=== PATIENT | female | born 1960 | race Caucasian/White ===

== ENCOUNTER 2019-02-14 12:31 | Emergency (ER) | payer BC ==
[2019-02-14] MEDS ORDERED: Adacel (T-DAP) 0.5 ML SYRINGE ONE (13:07)
[2019-02-14 13:33] LABS: #Basophils 0.1 thou/uL (0.0-0.2); #Lymphocytes 0.7 thou/uL (1.20-3.40); #Monocytes 0.4 thou/uL (0.11-0.59); #Neutrophils 5.3 thou/uL (1.40-6.50); %Basophils 0.8 % (0.0-1.0); %Lymphocytes 11.3 % (21.0-51.0); %Monocytes 5.7 % (0.0-10.0); %Neutrophils 82.1 % (42.0-75.0); Hemoglobin 12.9 g/dL (12.0-16.0); Mean Corpuscular HGB CONC 34.3 g/dL (32.0-36.0); Mean Corpuscular Hemoglobin 29.8 pg (27.0-31.0); Mean Corpuscular Volume 86.9 fL (78.0-98.0); Mean Platelet Volume 8.4 fL (7.4-10.4); Platelet Count 191 thou/uL (130-400); RBC Distribution Width 12.4 % (11.5-14.5); Red Blood Cell (RBC) Count 4.32 mill/uL (4.20-5.40); White Blood Cell (WBC) Count 6.4 thou/uL (4.8-10.8)
[2019-02-14 13:41] LABS: PTT 24.7 SEC (22.9-36.1); Prothrombin Time 12.9 SEC (12.0-14.7)
[2019-02-14 13:47] LABS: ALT (SGPT) 21 U/L (8-55); AST (SGOT) 22 U/L (5-34); Albumin 4.4 g/dL (3.5-5.0); Alkaline Phosphatase 60 U/L (40-150); Anion Gap 15 mmol/L (10-20); BUN (Urea Nitrogen) 15 mg/dL (9.8-20.1); Bilirubin, Total 1.6 mg/dL (0.2-1.2); CK (CPK) 102 U/L (29-168); Calc. Creatinine Clearance 0 mL/min (70-130); Calcium 9.8 mg/dL (7.8-10.44); Carbon Dioxide 22 mmol/L (22-29); Chloride 107 mmol/L (98-107); Estimated GFR-MDRD 59; Globulin 2.6 g/dL (2.4-3.5); Glucose 97 mg/dL (70-105); Potassium 4.1 mmol/L (3.5-5.1); Sodium 140 mmol/L (136-145)
[2019-02-14 15:38] LABS: Bilirubin Negative (Negative); Blood, Urine Negative (Negative); Clarity Clear (Clear); Glucose, Urine (Dipstick) Negative (Negative); Leukocyte Negative (Negative); Nitrite Negative (Negative); Protein, Urine (Dipstick) Negative (Neg-Trace); Specific Gravity, Urine 1.015 (1.005-1.030); Urobilinogen 0.2 mg/dL (0.2-1.0)
[2019-02-14] MEDS ORDERED: Acetaminophen 500 MG TAB ONE (16:20)
[2019-02-14 17:48] LABS: #Basophils 0.1 thou/uL (0.0-0.2); #Lymphocytes 1.1 thou/uL (1.20-3.40); #Monocytes 0.4 thou/uL (0.11-0.59); #Neutrophils 3.5 thou/uL (1.40-6.50); %Eosinophils 0.3 % (0.0-10.0); %Lymphocytes 20.9 % (21.0-51.0); %Monocytes 7.3 % (0.0-10.0); %Neutrophils 70.5 % (42.0-75.0); Hemoglobin 11.5 g/dL (12.0-16.0); Mean Corpuscular HGB CONC 34.8 g/dL (32.0-36.0); Mean Corpuscular Hemoglobin 29.8 pg (27.0-31.0); Mean Corpuscular Volume 85.7 fL (78.0-98.0); Platelet Count 164 thou/uL (130-400); Red Blood Cell (RBC) Count 3.85 mill/uL (4.20-5.40)
[2019-02-14 17:52] LABS: PTT 26.3 SEC (22.9-36.1); Prothrombin Time 13.5 SEC (12.0-14.7)
[2019-02-14 17:53] LABS: Bilirubin Negative (Negative); Blood, Urine Negative (Negative); Clarity Clear (Clear); Glucose, Urine (Dipstick) Negative (Negative); Leukocyte Trace (Negative); Nitrite Negative (Negative); Protein, Urine (Dipstick) Negative (Neg-Trace); Urobilinogen 0.2 mg/dL (0.2-1.0); pH, Urine 5.5 (5.0-9.0)
[2019-02-14 18:01] LABS: ALT (SGPT) 24 U/L (8-55); AST (SGOT) 29 U/L (5-34); Albumin 3.7 g/dL (3.5-5.0); Alkaline Phosphatase 53 U/L (40-150); Anion Gap 10 mmol/L (10-20); BUN (Urea Nitrogen) 14 mg/dL (9.8-20.1); Bilirubin, Total 1.2 mg/dL (0.2-1.2); CK (CPK) 84 U/L (29-168); Calc. Creatinine Clearance 0 mL/min (70-130); Calcium 8.6 mg/dL (7.8-10.44); Carbon Dioxide 23 mmol/L (22-29); Estimated GFR-MDRD 64; Glucose 109 mg/dL (70-105); Potassium 3.8 mmol/L (3.5-5.1); Protein, Total 5.7 g/dL (6.0-8.3)
[2019-02-14 18:10] LABS: Bacteria/HPF None Seen HPF (None Seen); RBC/HPF 0-3 HPF (0-3); Squamous Epithelial 0-3 HPF (0-3); WBC/HPF 0-3 HPF (0-3)
[2019-02-14 18:14] LABS: Chloride 108 mmol/L (98-107); Sodium 137 mmol/L (136-145)
== END 2019-02-14 19:31 | disposition home or self-care (01) ==
LOC: SCSER 12:31
DX: T63.001A Toxic effect of unspecified snake venom, accidental (unintentional), initial encounter (principal); E03.9 Hypothyroidism, unspecified; I10 Essential (primary) hypertension; Z79.899 Other long term (current) drug therapy
CPT/HCPCS: 36415; 80053; 81003; 81015; 82550; 85025; 85384; 85610; 85730; 86850; 86900; 86901; 90471; 90715; 93005; 96360; 96361

== ENCOUNTER 2019-02-15 14:45 | Emergency (ER) | payer BC ==
[2019-02-15] MEDS ORDERED: cefTRIAXone\\ROCEPHIN 1 GM VIAL ONE (15:34)
[2019-02-15] MEDS ORDERED: Sodium Chloride 0.9% 100 ML ONE (15:34)
== END 2019-02-15 16:10 | disposition home or self-care (01) ==
LOC: SCSER 14:45
DX: S81.852D Open bite, left lower leg, subsequent encounter (principal); L03.116 Cellulitis of left lower limb; W59.1 Contact with nonvenomous snakes
CPT/HCPCS: 96365; J0696; J3490

== ENCOUNTER 2019-06-02 07:31 | Outpatient (CLI) | payer BC ==
--- NOTE | 2019-06-02 09:02 | CT ---
EXAM: Abdomen and pelvic CT scan with contrast: HISTORY: Diffuse abdominal pain, history of endometrial cancer, hysterectomy and omental surgery, benign cysts of liver COMPARISON: 02/08/2016 FINDINGS: The visualized lung bases are clear. Liver: Stable circumscribed low-attenuation foci within the liver evidence for cysts. Gallbladder:Unremarkable. Pancreas:Unremarkable Spleen:Unremarkable. Adrenal glands:Unremarkable. Kidneys:No renal calculus or acute obstruction. No solid or cystic renal mass. No evidence for bowel obstruction. No CT evidence for acute appendicitis. The urinary bladder is unremarkable. Reproductive system:Status post hysterectomy. No evidence for pelvic abscess or abnormal fluid collection or adenopathy. No abscess, adenopathy, or abnormal fluid collection within the abdomen or pelvis. Lumbar spondylosis with multilevel stenosis most marked at L4-L5. IMPRESSION: Stable hepatic cysts. No evidence for metastasis. No evidence of other significant acute process.
== END 2019-06-02 07:32 | disposition home or self-care (01) ==
LOC: SCSCT 07:31
PROVIDERS: ATTEND Physician Assistant Medical
DX: R10.30 Lower abdominal pain, unspecified (principal); K76.89 Other specified diseases of liver; Z80.9 Family history of malignant neoplasm, unspecified; R93.3 Abnormal findings on diagnostic imaging of other parts of digestive tract; Z85.43 Personal history of malignant neoplasm of ovary
CPT/HCPCS: 74177

== ENCOUNTER → 2021-01-01 | Day surgery (SDC) | payer BC ==
[2020-12-28 11:40] VITALS: BMI 20.8
[2021-01-01 08:05] LABS: #Eosinphils 0.1 thou/uL (0.0-0.7); #Lymphocytes 0.6 thou/uL (1.20-3.40); #Monocytes 0.4 thou/uL (0.11-0.59); #Neutrophils 3.3 thou/uL (1.40-6.50); %Basophils 0.5 % (0.0-1.0); %Eosinophils 1.5 % (0.0-10.0); %Lymphocytes 12.9 % (21.0-51.0); %Monocytes 8.2 % (0.0-10.0); %Neutrophils 76.8 % (42.0-75.0); Hemoglobin 11.9 g/dL (12.0-16.0); Mean Corpuscular Hemoglobin 28.6 pg (27.0-31.0); Mean Corpuscular Volume 89.4 fL (78.0-98.0); Mean Platelet Volume 6.9 fL (7.4-10.4); Platelet Count 281 thou/uL (130-400); RBC Distribution Width 12.2 % (11.5-14.5); Red Blood Cell (RBC) Count 4.16 mill/uL (4.20-5.40); White Blood Cell (WBC) Count 4.3 thou/uL (4.8-10.8)
[2021-01-01 08:23] LABS: INR-International Normal Ratio 0.9; PTT 29.9 sec (22.9-36.1); Prothrombin Time 12.6 sec (12.0-14.7)
[2021-01-01 12:21] VITALS: BP 162/76; TEMP 98.6
== END ==
LOC: CT 07:31
PROVIDERS: ATTEND Internal Medicine Hematology & Oncology
PROC: 0WBH3ZX Excision of Retroperitoneum, Percutaneous Approach, Diagnostic (ICD-10-PCS; principal; 2021-01-01)
DX: C54.1 Malignant neoplasm of endometrium (principal); C78.6 Secondary malignant neoplasm of retroperitoneum and peritoneum; E03.9 Hypothyroidism, unspecified; Z79.82 Long term (current) use of aspirin; Z79.899 Other long term (current) drug therapy; Z87.891 Personal history of nicotine dependence; Z88.8 Allergy status to other drugs, medicaments and biological substances
CPT/HCPCS: 49180; 77012; 85025; 85610; 85730; 88305; 88333; 88341; 88342

== ENCOUNTER 2021-01-09 08:00 | Outpatient (CLI) | payer BC ==
[2021-01-09 10:59] LABS: Bilirubin Neg (Negative); Blood, Urine 10 (Negative); Clarity Clear (Clear); Glucose, Urine (Dipstick) Normal (Negative); Ketone, Urine 5 mg/dL (Negative); Leukocyte Negative (Negative); Nitrite Negative (Negative); Protein, Urine (Dipstick) Negative (Neg-Trace); Specific Gravity, Urine 1.015 (1.002-1.036); Urobilinogen Normal mg/dL (Less than 2); pH, Urine 6.5 (5.0-9.0)
[2021-01-09 11:01] LABS: Hemoglobin 11.9 g/dL (12.0-15.5); Mean Corpuscular HGB CONC 31.6 g/dL (32.0-36.0); Mean Corpuscular Hemoglobin 27.4 pg (27.0-33.0); Mean Corpuscular Volume 86.9 fl (81.6-98.3); Mean Platelet Volume 10.1 fl (7.4-10.4); Platelet Count 306 10x3/uL (150-450); RBC Distribution Width 13.2 % (11.5-14.5); Red Blood Cell (RBC) Count 4.34 10x6/uL (3.90-5.03); White Blood Cell (WBC) Count 4.2 10x3/uL (3.5-10.5)
[2021-01-09 11:14] LABS: Anion Gap 18 mmol/L (10-20); BUN (Urea Nitrogen) 20 mg/dL (9.8-20.1); Calc. Creatinine Clearance 0 mL/min (70-130); Calcium 9.4 mg/dL (7.8-10.44); Carbon Dioxide 24 mmol/L (23-31); Chloride 103 mmol/L (98-107); Glucose 75 mg/dL (80-115); Potassium 3.9 mmol/L (3.5-5.1); Sodium 141 mmol/L (136-145)
[2021-01-09 11:41] LABS: Bacteria/HPF None Seen HPF (None Seen); RBC/HPF 0-3 HPF (0-3); Squamous Epithelial None Seen HPF (0-3); WBC/HPF None Seen HPF (0-3)
[2021-01-09 21:48] LABS: SARS-CoV-2 PCR by NAA Not Detected (NotDetected)
== END 2021-01-09 08:01 | disposition home or self-care (01) ==
LOC: LABBT 08:00
PROVIDERS: ATTEND Urology
DX: Z01.818 Encounter for other preprocedural examination (principal); C54.1 Malignant neoplasm of endometrium; N13.30 Unspecified hydronephrosis; Z20.822 Contact with and (suspected) exposure to COVID-19
CPT/HCPCS: 78815; 80048; 81001; 85027; 87086; 87635; 93005; 93010; A9552; U0003; U0005

== ENCOUNTER 2021-01-09 10:32 | Outpatient (CLI) | payer BC | END 2021-01-09 10:33 | disposition home or self-care (01) | LOC: PET 10:32 | PROVIDERS: ATTEND Internal Medicine Hematology & Oncology | DX: C54.1 Malignant neoplasm of endometrium (principal); C78.6 Secondary malignant neoplasm of retroperitoneum and peritoneum; C77.5 Secondary and unspecified malignant neoplasm of intrapelvic lymph nodes | CPT/HCPCS: 78815; A9552 ==

== ENCOUNTER 2021-01-12 06:59 | Day surgery (SDC) | payer BC ==
[2021-01-11 10:05] VITALS: BMI 19.8
[2021-01-12] MEDS ORDERED: Levofloxacin 500 mg/D5W 100 ml Premix Bag ONE (08:24)
[2021-01-12] MEDS ORDERED: Iothalamate Meglumine 60% 50 ML VIAL FS ONE (09:16)
[2021-01-12] MEDS ORDERED: Fentanyl 100 MCG/2 ML VIAL ONE (09:21)
[2021-01-12] MEDS ORDERED: Ketorolac Tromethamine 30 MG/ML VIAL ONE (09:30)
[2021-01-12] MEDS ORDERED: Lidocaine 1% PF 5 ML VIAL ONE (09:30)
[2021-01-12] MEDS ORDERED: PROPOFOL 200 MG/20 ML VIAL ONE (09:30)
[2021-01-12] MEDS ORDERED: Dexamethasone 20 MG/5 ML VIAL ONE (09:30)
[2021-01-12] MEDS ORDERED: Ondansetron PF 4 MG/2 ML Vial ONE (09:30)
[2021-01-12] MEDS ORDERED: Phenazopyridine HCl 100 MG TAB ONE (10:02)
[2021-01-12] MEDS ORDERED: Oxybutynin 5 MG TAB ONE (10:02)
== END 2021-01-12 11:45 | disposition home or self-care (01) ==
LOC: SDC 06:59
PROVIDERS: ATTEND Urology
PROC: 0T778DZ Dilation of Left Ureter with Intraluminal Device, Via Natural or Artificial Opening Endoscopic (ICD-10-PCS; principal; 2021-01-12)
DX: N13.30 Unspecified hydronephrosis (principal); C54.1 Malignant neoplasm of endometrium; E03.9 Hypothyroidism, unspecified; I10 Essential (primary) hypertension; Z79.899 Other long term (current) drug therapy; Z88.8 Allergy status to other drugs, medicaments and biological substances; Z87.891 Personal history of nicotine dependence
CPT/HCPCS: 74420; J1100; J1885; J1956; J2405; J2704; J3010; Q9961

== ENCOUNTER 2021-01-16 14:00 | Outpatient (CLI) | payer BC ==
[~2021-01-16 14:00] MED LIST: Magnevist 469MG/ML 20 ML VIAL ONE
== END 2021-01-16 14:01 | disposition home or self-care (01) ==
LOC: BICMRI 14:00
PROVIDERS: ATTEND Internal Medicine Hematology & Oncology
DX: R93.7 Abnormal findings on diagnostic imaging of other parts of musculoskeletal system (principal); C54.1 Malignant neoplasm of endometrium; M54.5 Low back pain; M47.816 Spondylosis without myelopathy or radiculopathy, lumbar region
CPT/HCPCS: 72158; A9579

== ENCOUNTER 2021-03-12 11:26 | Observation (INO) | payer BC ==
[2021-03-12] MEDS ORDERED: Ketorolac Tromethamine 30 MG/ML VIAL ONE (11:55)
[2021-03-12 12:58] LABS: #Lymphocytes 0.7 thou/uL (1.20-3.40); #Monocytes 0.5 thou/uL (0.11-0.59); #Neutrophils 3.4 thou/uL (1.40-6.50); %Basophils 0.7 % (0.0-1.0); %Eosinophils 0.1 % (0.0-10.0); %Lymphocytes 14.9 % (21.0-51.0); %Neutrophils 73.2 % (42.0-75.0); Hemoglobin 11.8 g/dL (12.0-16.0); Mean Corpuscular HGB CONC 31.6 g/dL (32.0-36.0); Mean Corpuscular Hemoglobin 27.1 pg (27.0-31.0); Mean Corpuscular Volume 85.6 fL (78.0-98.0); Mean Platelet Volume 7.2 fL (7.4-10.4); Platelet Count 286 thou/uL (130-400); RBC Distribution Width 11.8 % (11.5-14.5); Red Blood Cell (RBC) Count 4.34 mill/uL (4.20-5.40); White Blood Cell (WBC) Count 4.6 thou/uL (4.8-10.8)
[2021-03-12 13:08] LABS: ALT (SGPT) 22 U/L (8-55); AST (SGOT) 37 U/L (5-34); Albumin 4.1 g/dL (3.4-4.8); Alkaline Phosphatase 88 U/L (40-110); Anion Gap 15 mmol/L (10-20); BUN (Urea Nitrogen) 20 mg/dL (9.8-20.1); Bilirubin, Total 0.9 mg/dL (0.2-1.2); Calc. Creatinine Clearance 0 mL/min (70-130); Calcium 9.2 mg/dL (7.8-10.44); Carbon Dioxide 21 mmol/L (23-31); Chloride 103 mmol/L (98-107); Glucose 92 mg/dL (80-115); Lipase 56 U/L (8-78); Potassium 4.3 mmol/L (3.5-5.1); Protein, Total 7.1 g/dL (5.8-8.1); Sodium 135 mmol/L (136-145)
[2021-03-12 13:13] LABS: Bilirubin Negative (Negative); Blood, Urine Large (Negative); Glucose, Urine (Dipstick) Negative (Negative); Ketone, Urine Trace mg/dL (Negative); Leukocyte Trace (Negative); Nitrite Negative (Negative); Protein, Urine (Dipstick) 100 mg/dL (Neg-Trace); Specific Gravity, Urine 1.025 (1.005-1.030); Urobilinogen 0.2 mg/dL (Less than 2)
[2021-03-12 13:15] LABS: Clarity Turbid (Clear)
[2021-03-12 13:16] LABS: Bacteria/HPF Rare-Few HPF (None Seen); RBC/HPF Greater than 50 HPF (0-3); Squamous Epithelial None Seen HPF (0-3)
[2021-03-12 13:28] LABS: PTT 31.5 sec (22.9-36.1)
[2021-03-12 13:29] LABS: Prothrombin Time 13.4 sec (12.0-14.7)
[2021-03-12] MEDS ORDERED: Ondansetron PF 4 MG/2 ML Vial IVP PRN (13:47)
[2021-03-12] MEDS ORDERED: Acetaminophen 325 MG TAB PO PRN (13:47)
[2021-03-12] MEDS ORDERED: Ondansetron ODT 4 MG TAB PO PRN (13:47)
[2021-03-12] MEDS ORDERED: Ketorolac Tromethamine 10 MG TAB PO PRN (13:50)
[2021-03-12] MEDS ORDERED: Morphine 2 MG/ML VIAL SLOW IVP PRN (13:50)
[2021-03-12 15:45] VITALS: BMI 20.4
[2021-03-12] MEDS: Sodium Chloride 0.9% 1,000 ML IV SCH (17:00)
[2021-03-12 18:03] LABS: Hemoglobin 11.3 g/dL (12.0-16.0)
[2021-03-12 18:28] LABS: Carbon Dioxide 23 mmol/L (23-31); Chloride 108 mmol/L (98-107); Potassium 3.8 mmol/L (3.5-5.1); Sodium 140 mmol/L (136-145)
[2021-03-12 18:29] LABS: Anion Gap 13 mmol/L (10-20); BUN (Urea Nitrogen) 17 mg/dL (9.8-20.1); Calc. Creatinine Clearance 47 mL/min (70-130); Calcium 8.7 mg/dL (7.8-10.44); Glucose 111 mg/dL (80-115)
[2021-03-13 01:21] LABS: Hemoglobin 10.5 g/dL (12.0-16.0)
[2021-03-13] MEDS: Sodium Chloride 0.9% 1,000 ML IV SCH (05:32)
[2021-03-13 05:35] LABS: #Lymphocytes 0.6 thou/uL (1.20-3.40); #Monocytes 0.5 thou/uL (0.11-0.59); #Neutrophils 2.5 thou/uL (1.40-6.50); %Basophils 0.6 % (0.0-1.0); %Eosinophils 0.1 % (0.0-10.0); %Lymphocytes 16.4 % (21.0-51.0); %Monocytes 12.9 % (0.0-10.0); %Neutrophils 70.1 % (42.0-75.0); Anion Gap 14 mmol/L (10-20); BUN (Urea Nitrogen) 17 mg/dL (9.8-20.1); Calc. Creatinine Clearance 59 mL/min (70-130); Calcium 8.5 mg/dL (7.8-10.44); Carbon Dioxide 19 mmol/L (23-31); Chloride 111 mmol/L (98-107); Glucose 102 mg/dL (80-115); Hemoglobin 10.6 g/dL (12.0-16.0); Mean Corpuscular HGB CONC 30.8 g/dL (32.0-36.0); Mean Corpuscular Hemoglobin 26.2 pg (27.0-31.0); Mean Corpuscular Volume 85.1 fL (78.0-98.0); Mean Platelet Volume 7.5 fL (7.4-10.4); Platelet Count 262 thou/uL (130-400); Potassium 4.2 mmol/L (3.5-5.1); RBC Distribution Width 12.2 % (11.5-14.5); Red Blood Cell (RBC) Count 4.04 mill/uL (4.20-5.40); Sodium 140 mmol/L (136-145); White Blood Cell (WBC) Count 3.5 thou/uL (4.8-10.8)
[2021-03-13] MEDS ORDERED: Thyroid 60 MG TAB PO SCH (06:00)
[2021-03-13 08:14] VITALS: TEMP 98.1
[2021-03-13 08:17] VITALS: BP 118/63
[2021-03-13] MEDS ORDERED: Amlodipine 5 MG TAB PO SCH (09:00)
== END 2021-03-13 11:10 | disposition home or self-care (01) ==
LOC: ERS 11:26 → SURG A 13:35
PROVIDERS: ADMIT Internal Medicine; ATTEND Nurse Practitioner Family
DX: N13.1 Hydronephrosis with ureteral stricture, not elsewhere classified (principal); C54.1 Malignant neoplasm of endometrium; C48.0 Malignant neoplasm of retroperitoneum; I12.9 Hypertensive chronic kidney disease with stage 1 through stage 4 chronic kidney disease, or unspecified chronic kidney disease; N18.9 Chronic kidney disease, unspecified; E03.9 Hypothyroidism, unspecified; Z96.0 Presence of urogenital implants; Z79.899 Other long term (current) drug therapy; Z88.8 Allergy status to other drugs, medicaments and biological substances; Z90.710 Acquired absence of both cervix and uterus; Z92.21 Personal history of antineoplastic chemotherapy; Z92.3 Personal history of irradiation
CPT/HCPCS: 36415; 74176; 80048; 80053; 81003; 81015; 83690; 85014; 85018; 85025; 85610; 85730; 86850; 86900; 86901; 87040; 87086; G0378; J1885

== ENCOUNTER 2021-07-17 07:33 | Outpatient (CLI) | payer BC | END 2021-07-17 07:34 | disposition home or self-care (01) | LOC: PET 07:33 | PROVIDERS: ATTEND Internal Medicine Hematology & Oncology | DX: C54.1 Malignant neoplasm of endometrium (principal) | CPT/HCPCS: 78815; A9552 ==

== ENCOUNTER 2021-11-08 08:00 | Outpatient (CLI) | payer BC | END 2021-11-08 08:01 | disposition home or self-care (01) | LOC: PET 08:00 | PROVIDERS: ATTEND Internal Medicine Hematology & Oncology | DX: C53.9 Malignant neoplasm of cervix uteri, unspecified (principal); R59.0 Localized enlarged lymph nodes; N13.30 Unspecified hydronephrosis; Z96.0 Presence of urogenital implants | CPT/HCPCS: 78815; A9552 ==

== ENCOUNTER 2022-01-08 07:57 | Outpatient (CLI) | payer BC ==
[2022-01-08] MEDS ORDERED: Iopamidol-370 76% 500 ML 1 ML ONE (08:52)
== END 2022-01-08 07:58 | disposition home or self-care (01) ==
LOC: BICCT 07:57
PROVIDERS: ATTEND Internal Medicine Hematology & Oncology
DX: C54.1 Malignant neoplasm of endometrium (principal); R59.1 Generalized enlarged lymph nodes; N13.30 Unspecified hydronephrosis
CPT/HCPCS: 71260; 74177; 82565; Q9967

== ENCOUNTER 2022-02-25 07:06 | Outpatient (CLI) | payer BC | END 2022-02-25 07:07 | disposition home or self-care (01) | LOC: BICULT 07:06 | PROVIDERS: ATTEND Urology | DX: C79.82 Secondary malignant neoplasm of genital organs (principal); C80.1 Malignant (primary) neoplasm, unspecified; N13.30 Unspecified hydronephrosis | CPT/HCPCS: 76770 ==

== ENCOUNTER 2022-04-02 08:02 | Outpatient (CLI) | payer BC ==
[2022-04-02] MEDS ORDERED: Iopamidol-370 76% 500 ML 1 ML ONE (08:44)
== END 2022-04-02 08:03 | disposition home or self-care (01) ==
LOC: BICCT 08:02
PROVIDERS: ATTEND Internal Medicine Hematology & Oncology
DX: C54.1 Malignant neoplasm of endometrium (principal)
CPT/HCPCS: 71260; 74177; Q9967

== ENCOUNTER 2023-07-03 08:05 | Outpatient (CLI) | payer BC | END 2023-07-03 08:06 | disposition home or self-care (01) | LOC: CT 08:05 | PROVIDERS: ATTEND Internal Medicine Hematology & Oncology | DX: C54.1 Malignant neoplasm of endometrium (principal) | CPT/HCPCS: 71260; 74177; 82565 ==